=== PATIENT | female | born 1970 | race Caucasian/White ===

== ENCOUNTER 2018-06-07 17:59 | Emergency (ER) | payer MEDICAID ==
[~2018-06-07] VITALS: Ht 160 cm; Wt 79.4 kg
[2018-06-07 18:07] VITALS: Ht 160 cm; Wt 79.4 kg
[2018-06-07 20:11] VITALS: BP 114/75
== END 2018-06-07 20:11 | disposition home or self-care (01) ==
LOC: ED 17:59
DX: M54.2 Cervicalgia (principal); R51 Headache; V48.5XXA Car driver injured in noncollision transport accident in traffic accident, initial encounter; Y93.I9 Activity, other involving external motion; Y92.488 Other paved roadways as the place of occurrence of the external cause; Y99.8 Other external cause status

== ENCOUNTER 2018-08-13 20:50 | Emergency (ER) | payer OTHER ==
[~2018-08-13] VITALS: Ht 160 cm; Wt 78.9 kg
[2018-08-13 21:00] VITALS: BP 109/83; Ht 160 cm; Wt 78.9 kg
== END 2018-08-13 21:58 | disposition home or self-care (01) ==
LOC: ED 20:50
DX: N39.0 Urinary tract infection, site not specified (principal); J30.9 Allergic rhinitis, unspecified; Z98.890 Other specified postprocedural states

== ENCOUNTER 2019-06-24 01:19 | Emergency (ER) | payer BC ==
[~2019-06-24] VITALS: Ht 160 cm; Wt 84.1 kg
[2019-06-24 01:30] VITALS: Ht 160 cm; Wt 84.1 kg
[2019-06-24 08:09] VITALS: BP 120/84
== END 2019-06-24 08:09 | disposition home or self-care (01) ==
LOC: ED 01:19
DX: T37.8X5A Adverse effect of other specified systemic anti-infectives and antiparasitics, initial encounter (principal); Y92.89 Other specified places as the place of occurrence of the external cause
CPT/HCPCS: J1200; J7512